=== PATIENT | female | born 1935 | race African-American/Black ===

== ENCOUNTER 2024-06-21 10:25 | Observation (INO) ==
--- NOTE | 2024-06-21 10:53 | Emergency Department Note ---
HPI - URI/Sore Throat General Chief Complaint: Upper Respiratory Infection Stated Complaint: RSV Source: patient and family Limitations: no limitations History of Present Illness HPI Narrative: 88 Y/O Female presents to the ED with c/o cough, fatigue, generally not feeling well since last Wednesday. Patient was seen in the ED on Wednesday, with a DX of RSV she was discharged to home. Today the patient was seen by her PCP for similar symptoms and was advised to go to the ER. MD elicited complaint: Reports fever and cough Consistency: Reports constant Severity: mild-moderate Description of mucous: Reports clear Able to tolerate fluids by mouth: Yes Exacerbating factors: Reports exertion Relieving factors: Reports nothing Associated symptoms: Reports fever and chills Related Data Previous Rx's Medication Instructions Recorded nystatin 100,000 unit/mL oral 500,000 unit (5 mL) PO QID thrush 06/18/24 suspension #200 mL Allergies Allergy/AdvReac Type Severity Reaction Status Date / Time No Known Drug Allergies Allergy Verified 06/21/24 10:59 Review of Systems Narrative 88 Y/O Female with PMHX of 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 Non smoker. Patient was recently DX with RSV on Wednesday, since cough has been getting worse. Status of ROS 10 or more systems reviewed and unremark able except as noted in history and below Constitutional Reports: fever and malaise; Denies: chills Eyes Denies: change in vision or blurry vision Cardiovascular Denies: chest pain, palpitations or edema Respiratory Reports: shortness of breath, cough and wheezing; Denies: stridor or pain on inspiration Gastrointestinal Denies: abdominal pain, nausea or vomiting Genitourinary Denies: painful urination Neurological Denies: headache, weakness in extremities, lack of coordination, dizziness or vertigo [facility] Medical History (Updated 06/21/24 @ 14:15 by Catina Fraser RN) 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 CAD (coronary artery disease) HTN (hypertension) Social History Smoking status: never smoker Exam Constitutional: normal general appearance, no apparent distress, no limitations and alert Vital Signs - 24 hr 06/21/24 10:35 06/21/24 11:22 06/21/24 11:30 Temperature 99.9 F H Pulse Rate 77 74 Respiratory Rate 18 16 Blood Pressure 128/66 129/52 Pulse Oximetry 100 100 97 Oxygen Delivery Me thod Room Air Room Air 06/21/24 12:32 06/21/24 12:38 Temperature Pulse Rate 72 Respiratory Rate 16 Blood Pressure 140/53 Pulse Oximetry 98 94 L Oxygen Delivery Me thod Room Air HENMT: normocephalic Eyes: PERRL and EOMs intact bilaterally Chest: inspection of chest normal and palpation of chest normal Respiratory: no wheezes, no retractions and no use of accessory muscles rhonchi, with rales Jose Angel lung bases Cardiovascular: normal heart rate noted, regular rhythm noted and peripheral pulses 2+ throughout Gastrointestinal: abdomen normal to inspection and abdomen soft to palpation Extremities: normal to inspection and no tenderness Neurology: gait normal, speech normal and coordination normal Course Course Hospital Course: Chest x-ray, without any acute process CT CHEST ordered COVID negative WBC normal BNP elevated > 150 I spoke with the patient and her daughter about the results and plans for admission, both agree to admission plans. Reevaluation(s) Reevaluation #1: Patient lungs, continue with rhonchi, and rales, despite breathing treatment. Time: 11:58 Vital Signs Vital signs: Vital Signs Temperature 99.9 F H 06/21/24 10:35 Pulse Rate 77 06/21/24 10:35 Respiratory Rate 18 06/21/24 10:35 Blood Pressure 128/66 06/21/24 10:35 Pulse Oximetry 100 06/21/24 10:35 Oxygen Delivery Method Room Air 06/21/24 10:35 Temperature 99.9 F H 06/21/24 10:35 Pulse Rate 74 06/21/24 14:40 Respiratory Rate 18 06/21/24 14:40 Blood Pressure 147/53 06/21/24 14:40 Pulse Oximetry 97 06/21/24 14:40 Oxygen Delivery Method Room Air 06/21/24 14:31 MDM - URI/Sore Throat MDM Narrative Medical Decision Making Narrative: Patient admitted for further work up and treatment considerations for CHF and RSV DX. Differential Diagnosis Upper Respiratory Differential Diagnosis: upper respiratory infection Medical Records MDM Medical Records Attestation: I reviewed the patient's medical records. Lab Data Attestation: I reviewed the patient's lab results. Labs: Lab Results 06/21/24 Range/Units 11:05 WBC 5.7 (4.3-9.3) K/uL RBC 3.6 L (4.00-5.50) M/uL Hgb 11.6 L (12.5-15.8) gm/dL Hct 33.8 L (35.9-46.7) % MCV 94.5 H (81.0-93.7) fl MCH 32.3 H (27.6-32.2) pg MCHC 34.2 (33.1-35.3) g/dl RDW 15.1 H (11.4-14.2) % Plt Count 156 (152-353) K/uL MPV 10.3 (6.9-10.8) fl Gran % 72.5 H (47.8-71.3) % Lymph % (Auto) 13.1 L (20.0-43.0) % [place] % (Auto) 13.2 H (3.6-9.8) % Eos % (Auto) 0.9 (0.4-2.8) % Baso % (Auto) 0.3 (0.1-0.85) Lymph # (Auto) 0.8 L (1.1-3.1) [place] # (Auto) 0.8 L (1.1-3.1) Eos # (Auto) 0.1 (0.0-0.2) Baso # (Auto) 0.0 (0.0-0.1) Absolute Gran (auto) 4.2 (2.3-6.0) Sodium 132 L (136-145) mmol/L Potassium 3.3 L (3.6-5.2) mmol/L Chloride 94.0 L (98-107) mmol/L Carbon Dioxide 30 (21-32) mmol/L Anion Gap 8.0 (4-14) mEq/L BUN 12 (7-18) mg/dL Creatinine 1.4 H (0.6-1.3) mg/dL Estimated GFR 36.6 (>59.9) Glucose 103 (70-110) mg/dL Calcium 9.0 (8.5-10.1) mg/dL Magnesium 1.7 L (1.8-2.4) mg/dL B-Natriuretic Peptide 291.0 H (0-100) pg/mL COVID-19 ([facility]) Not detected (Not Detectd) Imaging Data Attestation imaging: I have reviewed the pertinent imaging results. My Impression: EXAM: XR CHEST 1V HISTORY: WHEEZING X COUPLE DAYS; CV COMPARISON: June 18, 2024 FINDINGS: The trachea is midline. The cardiac silhouette is borderline in size with left- sided pacemaker in place. Right IJ Port-A-Cath is in place. The lungs are clear without focal infiltrate or effusion. The bony thorax is unremarkable. IMPRESSION: No acute cardiopulmonary disease. THIS IS AN ELECTRONICALLY VERIFIED FINAL REPORT 06/21/2024 11:39 AM - Electronically signed by Isabella Arriola MD EXAMINATION: CT CHEST W CON HISTORY: wheezing, rhonchi, raleswheezing, rhonchi, rales; CV. COMPARISON: CT chest 11/02/2021 TECHNIQUE: Routine axial imaging of the chest was performed. Postcontrast CT of the chest was performed. The above CT scan was done with automated exposure control and the mA and kV was adjusted to obtain quality images according to patient size. FINDINGS: Lungs: Respiratory motion. Scattered patchy areas of atelectasis. Bronchial thickening. No acute infiltrates, interstitial changes or ground-glass opacities. Calcified nodules in the lingula are unchanged. Central Airways: No obstructing endobronchial lesions Pleura: No pleural effusion or pneumothorax Thoracic Aorta: Tapers and enhances normally. Atherosclerotic calcification is present. Main Pulmonary Trunk: Normal diameter. No CT angiography evidence for acute pulmonary embolus Lymph Nodes: No pathologic hilar, axillary or mediastinal adenopathy. Heart/Pericardium: Normal heart size. No significant pericardial effusion. Liver: No acute findings. GB/Biliary: Distended gallbladder. No gallstones or dilated ducts Spleen: Normal size and density Pancreas: No acute findings as visualized Adrenal Glands: No mass Kidneys no hydronephrosis. Multiple renal cysts partially imaged. There is minimal to no change compared with previous. Abdominal Aorta: Tapers and enhances normally Retroperitoneum: No pathologically enlarged lymph nodes Bowel/Peritoneal Cavity: No acute findings as visualized Osseous Structures: Multilevel degenerative changes in the spine. No acute findings or bony lesions. Other: None IMPRESSION: No CT angiography evidence for acute pulmonary embolus or aortic dissection. Scattered patchy areas of atelectasis with bronchial thickening The above CT scan was done with automated exposure control and the mA and kV was adjusted to obtain quality images according to patient size THIS IS AN ELECTRONICALLY VERIFIED FINAL REPORT 06/21/2024 3:15 PM - Electronically signed by Joey Quesada MD Discharge Plan Discharge Patient Disposition: Admitted As Inpatient Condition: Stable Clinical Impression: Respiratory syncytial virus (RSV), Acute exacerbation of CHF (congestive heart failure) Interventions: ED Discharge Assessment Last Done: 06/21/24 14:40 ED Discharge Vital Sign Last Done: 06/21/24 14:40 Emergency Department Charge Sheet Last Done: 06/21/24 14:40 Time of Disposition: 12:40 Discharge Date/Time: 06/21/24 14:40
[2024-06-21] MEDS: METHYLPREDNISOLONE SOD SUCC/PF 125 MG/2 ML VIAL IVP ONE (11:19)
[2024-06-21] MEDS ORDERED: METHYLPREDNISOLONE SOD SUCC/PF 125 MG/2 ML VIAL ONE (11:19)
[2024-06-21] MEDS: IPRATROPIUM/ALBUTEROL SULFATE 3 ML AMPUL.NEB INH ONE ×3 (11:21→17:00)
[2024-06-21 11:28] LABS: Basophils%(Percent) Auto 0.3 (0.1-0.85); Eosinophils#(Absolute)Auto 0.1 (0.0-0.2); Eosinophils%(Percent) Auto 0.9 % (0.4-2.8); Granulocytes % - Auto 72.5 % (47.8-71.3); Granulocytes#(Absolute)- Auto 4.2 (2.3-6.0); Hematocrit 33.8 % (35.9-46.7); Mean Corpuscular Volume 94.5 fl (81.0-93.7); Monocytes #(Absolute)- Auto 0.8 (1.1-3.1); Monocytes %(Percent)- Auto 13.2 % (3.6-9.8); Platelet Count 156 K/uL (152-353); White Blood Count 5.7 K/uL (4.3-9.3)
[2024-06-21 11:38] LABS: Potassium 3.3 mmol/L (3.6-5.2)
[2024-06-21] MEDS: POTASSIUM CHLORIDE 20 MEQ TAB.ER.PRT PO ONE ×2 (11:52→16:59)
[2024-06-21] MEDS: MAGNESIUM SULFATE/D5W 2 GM/200 ML PIGGYBACK IV ONE (12:23)
[2024-06-21] MEDS: BUDESONIDE 0.5 MG/2 ML AMPUL.NEB INH ONE (12:37)
[2024-06-21] MEDS ORDERED: ACETAMINOPHEN 500 MG TABLET PO PRN (13:00)
[2024-06-21] MEDS ORDERED: bisacodyL 10 MG SUPP.RECT PR PRN (13:00)
[2024-06-21] MEDS ORDERED: MAGNESIUM, ALUMINUM HYDROXIDE 30 ML ORAL.SUSP PO PRN (13:00)
[2024-06-21] MEDS: IPRATROPIUM/ALBUTEROL SULFATE 3 ML AMPUL.NEB INH PRN (16:06)
[2024-06-22 05:46] LABS: Basophils%(Percent) Auto 0.2 (0.1-0.85); Granulocytes % - Auto 80.3 % (47.8-71.3); Granulocytes#(Absolute)- Auto 5.7 (2.3-6.0); Hematocrit 32.4 % (35.9-46.7); Monocytes #(Absolute)- Auto 0.8 (1.1-3.1); Monocytes %(Percent)- Auto 10.8 % (3.6-9.8); Platelet Count 159 K/uL (152-353); White Blood Count 7.1 K/uL (4.3-9.3)
[2024-06-22 06:11] LABS: Potassium 3.8 mmol/L (3.6-5.2)
--- NOTE | 2024-06-22 10:44 | History & Physical Report ---
H&P: HPI History of Present Illness Chief complaint: CHF EXCERBATION Narrative: 88 Y/O Female presents to the ED with c/o cough, fatigue, generally not feeling well since last Wednesday. Patient was seen in the ED on Wednesday, with a DX of RSV she was discharged to home. Today the patient was seen by her PCP for similar symptoms and was advised to go to the ER. Admitted patient to med/surg for observation and treatment. Review of Systems Status of ROS 10 or more systems reviewed and unremark able except as noted in history and below Constitutional Reports: fever and malaise; Denies: chills Eyes Denies: change in vision or blurry vision Ears, nose, mouth, and throat Denies: vertigo Cardiovascular Reports: shortness of breath with exertion; Denies: chest pain, palpitations or edema Respiratory Reports: shortness of breath, cough and wheezing; Denies: stridor or pain on inspiration Gastrointestinal Denies: abdominal pain, nausea or vomiting Genitourinary Denies: painful urination Neurological Denies: headache, weakness in extremities, lack of coordination, dizziness or vertigo Allergic/Immunologic Reports: wheezing PFSH PFSH Medical History (Updated 06/22/24 @ 10:39 by PREMA Sargent) 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 CAD (coronary artery disease) HTN (hypertension) Social History Smoking status: never smoker Problems where you live: no known problems Highest level of school completed/degree received: high school Meds Home Medications and Allergies Home Medications Medication Instructions Recorded Confirmed Type nystatin 100,000 unit/mL oral 500,000 unit (5 mL) PO QID thrush 06/18/24 Rx suspension #200 mL Allergies Allergy/AdvReac Type Severity Reaction Status Date / Time No Known Drug Allergies Allergy Verified 06/21/24 10:59 Exam Exam: Patient in ibarra's position with family at bedside upon entering room for exam. Constitutional: normal general appearance, no apparent distress, abnormal body habitus (obese), no limitations and alert Vital Signs - 24 hr 06/21/24 10:35 06/21/24 11:22 06/21/24 11:30 Temperature 99.9 F H Pulse Rate 77 74 Pulse Rate [Right Carotid] Respiratory Rate 18 16 Blood Pressure 128/66 129/52 Blood Pressure [Le ft Arm] Pulse Oximetry 100 100 97 Oxygen Delivery Me thod Room Air Room Air 06/21/24 12:32 06/21/24 12:38 06/21/24 13:30 Temperature Pulse Rate 72 76 Pulse Rate [Right Carotid] Respiratory Rate 16 18 Blood Pressure 140/53 159/50 Blood Pressure [Le ft Arm] Pulse Oximetry 98 94 L [facility] 06/21/24 14:31 06/21/24 14:40 06/21/24 15:00 Temperature Pulse Rate 74 74 Pulse Rate [Right Carotid] Respiratory Rate 18 18 Blood Pressure 147/53 147/53 Blood Pressure [Le ft Arm] Pulse Oximetry 97 97 97 [facility] 06/21/24 17:14 06/21/24 19:00 06/21/24 20:07 Temperature 97.4 F L 97.8 F Pulse Rate Pulse Rate [Right Carotid] 77 72 Respiratory Rate 19 18 Blood Pressure Blood Pressure [Le ft Arm] 160/62 141/56 Pulse Oximetry 97 95 95 Oxygen Delivery [facility] Room Air 06/22/24 00:00 06/22/24 00:14 06/22/24 06:31 Temperature 98.4 F 98.3 F Pulse Rate Pulse Rate [Right Carotid] 83 80 Respiratory Rate 17 17 Blood Pressure Blood Pressure [Le ft Arm] 148/62 162/64 Pulse Oximetry 97 97 97 Oxygen Delivery [facility] Room Air Room Air 06/22/24 08:23 Temperature 97.5 F L Pulse Rate Pulse Rate [Right Carotid] 72 Respiratory Rate 18 Blood Pressure Blood Pressure [Le ft Arm] 158/69 Pulse Oximetry 100 [facility] HENMT: normocephalic, head/scalp atraumatic, hearing grossly normal bilaterally, external ears normal and external nose normal Eyes: PERRL, EOMs intact bilaterally, conjunctivae normal, alignment normal, periorbital findings normal and visual acuity normal Neck/C-Spine: trachea midline Lymph: no lymphadenopathy noted and no lymphedema noted Chest: inspection of chest normal and palpation of chest normal Respiratory: breath sounds equal bilaterally, normal respiratory effort, wheezing noted (scattered wheezes), no retractions and no use of accessory muscles Cardiovascular: normal heart rate noted, regular rhythm noted and peripheral pulses 2+ throughout Gastrointestinal: abdomen normal to inspection and abdomen soft to palpation Genitourinary: bladder normal to palpation Back/Pelvis: spine normal to inspection Extremities: normal to inspection and no tenderness 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, no movement abnormality noted, gait abnormality noted (unable to access), speech normal and coordination normal Psychiatry: Mental Status Exam documented within this Exam's Psych section mental status grossly normal, oriented x3, thought process normal, cooperative, affect normal, psychomotor activity normal and memory normal Skin: skin color normal and skin turgor normal Assessment and Plan Assessment and Plan (1) CHF exacerbation: Qualifiers: Heart failure type: unspecified Qualified Code(s): I50.9 - Heart failure, unspecified Code(s): I50.9 - Heart failure, unspecified (2) RSV (respiratory syncytial virus infection): Qualifiers: RSV infection type: unspecified Qualified Code(s): B33.8 - Other specified viral diseases Code(s): B33.8 - Other specified viral diseases Plan Albuterol Sulfate 3 ml INH RQ4 Nystatin 500,000 unit PO BID - medication from home Acetaminophen 500 mg PO Q6H PRN Magnesium Hydroxide 30 ml PO Daily PRN Bisacodyl 10 mg [place] Daily PRN Continue to monitor labs and symptoms. Results Labs Labs: CBC WBC 7.1 K/uL (4.3-9.3) 06/22/24 05:20 RBC 3.5 M/uL (4.00-5.50) L 06/22/24 05:20 Hgb 11.2 gm/dL (12.5-15.8) L 06/22/24 05:20 Hct 32.4 % (35.9-46.7) L 06/22/24 05:20 MCV 94.0 fl (81.0-93.7) H 06/22/24 05:20 MCH 32.4 pg (27.6-32.2) H 06/22/24 05:20 MCHC 34.5 g/dl (33.1-35.3) 06/22/24 05:20 RDW 14.7 % (11.4-14.2) H 06/22/24 05:20 Plt Count 159 K/uL (152-353) 06/22/24 05:20 MPV 9.9 fl (6.9-10.8) 06/22/24 05:20 Gran % 80.3 % (47.8-71.3) H 06/22/24 05:20 Lymph % (Auto) 8.7 % (20.0-43.0) L 06/22/24 05:20 [place] % (Auto) 10.8 % (3.6-9.8) H 06/22/24 05:20 Eos % (Auto) 0.0 % (0.4-2.8) L 06/22/24 05:20 Baso % (Auto) 0.2 (0.1-0.85) 06/22/24 05:20 Lymph # (Auto) 0.6 (1.1-3.1) L 06/22/24 05:20 [place] # (Auto) 0.8 (1.1-3.1) L 06/22/24 05:20 Eos # (Auto) 0.0 (0.0-0.2) 06/22/24 05:20 Baso # (Auto) 0.0 (0.0-0.1) 06/22/24 05:20 Absolute Gran (auto) 5.7 (2.3-6.0) 06/22/24 05:20 BMP Sodium 135 mmol/L (136-145) L 06/22/24 05:20 Potassium 3.8 mmol/L (3.6-5.2) 06/22/24 05:20 Chloride 97.0 mmol/L (98-107) L 06/22/24 05:20 Carbon Dioxide 28 mmol/L (21-32) 06/22/24 05:20 Anion Gap 10.0 mEq/L (4-14) 06/22/24 05:20 BUN 18 mg/dL (7-18) 06/22/24 05:20 Creatinine 1.6 mg/dL (0.6-1.3) H 06/22/24 05:20 Estimated GFR 31.2 (>59.9) 06/22/24 05:20 Glucose 170 mg/dL (70-110) H 06/22/24 05:20 Calcium 9.6 mg/dL (8.5-10.1) 06/22/24 05:20 Phosphorus 3.7 mg/dL (2.5-4.9) 06/22/24 05:20 Magnesium 2.6 mg/dL (1.8-2.4) H 06/22/24 05:20 Total Bilirubin 0.32 mg/dL (0.0-1.0) 06/22/24 05:20 AST 23 U/L (15-37) 06/22/24 05:20 ALT 23 U/L (30-65) L 06/22/24 05:20 Alkaline Phosphatase 70 U/L (50-136) 06/22/24 05:20 Total Protein 6.8 g/dL (6.4-8.2) 06/22/24 05:20 Albumin 3.4 g/dL (3.4-5.0) 06/22/24 05:20 Liver Function Total Bilirubin 0.32 mg/dL (0.0-1.0) 06/22/24 05:20 AST 23 U/L (15-37) 06/22/24 05:20 ALT 23 U/L (30-65) L 06/22/24 05:20 Alkaline Phosphatase 70 U/L (50-136) 06/22/24 05:20 Total Protein 6.8 g/dL (6.4-8.2) 06/22/24 05:20 Albumin 3.4 g/dL (3.4-5.0) 06/22/24 05:20 Imaging Imaging ordered: Chest x-ray and CT scan - chest Radiologist's impression: XR CHEST 1V Date of Service: 06/21/24 HISTORY: WHEEZING X COUPLE DAYS; CV COMPARISON: June 18, 2024 FINDINGS: The trachea is midline. The cardiac silhouette is borderline in size with left- sided pacemaker in place. Right IJ Port-A-Cath is in place. The lungs are clear without focal infiltrate or effusion. The bony thorax is unremarkable. IMPRESSION: No acute cardiopulmonary disease. CT CHEST W CON Date of Service: 06/21/24 HISTORY: wheezing, rhonchi, raleswheezing, rhonchi, rales; CV. COMPARISON: CT chest 11/02/2021 TECHNIQUE: Routine axial imaging of the chest was performed. Postcontrast CT of the chest was performed. The above CT scan was done with automated exposure control and the mA and kV was adjusted to obtain quality images according to patient size. FINDINGS: Lungs: Respiratory motion. Scattered patchy areas of atelectasis. Bronchial thickening. No acute infiltrates, interstitial changes or ground-glass opacities. Calcified nodules in the lingula are unchanged. Central Airways: No obstructing endobronchial lesions Pleura: No pleural effusion or pneumothorax Thoracic Aorta: Tapers and enhances normally. Atherosclerotic calcification is present. Main Pulmonary Trunk: Normal diameter. No CT angiography evidence for acute pulmonary embolus Lymph Nodes: No pathologic hilar, axillary or mediastinal adenopathy. Heart/Pericardium: Normal heart size. No significant pericardial effusion. Liver: No acute findings. GB/Biliary: Distended gallbladder. No gallstones or dilated ducts Spleen: Normal size and density Pancreas: No acute findings as visualized Adrenal Glands: No mass Kidneys no hydronephrosis. Multiple renal cysts partially imaged. There is minimal to no change compared with previous. Abdominal Aorta: Tapers and enhances normally Retroperitoneum: No pathologically enlarged lymph nodes Bowel/Peritoneal Cavity: No acute findings as visualized Osseous Structures: Multilevel degenerative changes in the spine. No acute findings or bony lesions. Other: None IMPRESSION: No CT angiography evidence for acute pulmonary embolus or aortic dissection. Scattered patchy areas of atelectasis with bronchial thickening The above CT scan was done with automated exposure control and the mA and kV was adjusted to obtain quality images according to patient size
[2024-06-22] MEDS: IPRATROPIUM/ALBUTEROL SULFATE 3 ML AMPUL.NEB INH SCH (11:21)
[2024-06-22] MEDS: NYSTATIN 100000 UNIT/ML PO SCH (12:21)
[2024-06-23 04:52] LABS: Basophils%(Percent) Auto 0.3 (0.1-0.85); Eosinophils#(Absolute)Auto 0.1 (0.0-0.2); Granulocytes % - Auto 69.5 % (47.8-71.3); Granulocytes#(Absolute)- Auto 3.5 (2.3-6.0); Hematocrit 29.4 % (35.9-46.7); Mean Corpuscular Volume 93.5 fl (81.0-93.7); Monocytes #(Absolute)- Auto 0.7 (1.1-3.1); Monocytes %(Percent)- Auto 13.7 % (3.6-9.8); Platelet Count 168 K/uL (152-353); White Blood Count 5.1 K/uL (4.3-9.3)
[2024-06-23 06:03] LABS: Potassium 3.3 mmol/L (3.6-5.2)
[2024-06-23] MEDS: IPRATROPIUM/ALBUTEROL SULFATE 3 ML AMPUL.NEB INH ONE (08:17)
[2024-06-23] MEDS ORDERED: MECLIZINE HCL 25 MG TABLET PO PRN (09:22)
[2024-06-23] MEDS: POTASSIUM CHLORIDE 20 MEQ TAB.ER.PRT PO ONE (09:35)
[2024-06-23] MEDS: LORATADINE 10 MG TABLET PO SCH (09:37)
[2024-06-23] MEDS: LOSARTAN POTASSIUM 50 MG TABLET PO SCH (09:58)
[2024-06-23] MEDS ORDERED: LINACLOTIDE 72 MCG PO SCH (10:00)
[2024-06-23] MEDS: TIMOLOL MALEATE 0.5% OPTH SCH (10:19)
[2024-06-23] MEDS: EZETIMIBE SIMVASTATIN PO SCH (10:19)
[2024-06-23] MEDS: EZETIMIBE 10 MG TABLET PO SCH (10:50)
[2024-06-23] MEDS: [UNRECOGNIZED DRUG - OTHER] PO SCH (11:47)
[2024-06-23] MEDS: MULTIVIT MIN FA LYCOPEN LUTEIN PO SCH (11:47)
[2024-06-23] MEDS: ENTECAVIR 0.5 MG PO SCH (11:47)
[2024-06-23] MEDS: SIMVASTATIN 40 MG TABLET PO SCH (11:48)
[2024-06-23] MEDS: METHYLPREDNISOLONE SOD SUCC/PF 40 MG/ML VIAL INJ SCH (13:01)
[2024-06-23] MEDS: cloNIDine HCL 0.1 MG TABLET PO ONE (19:34)
[2024-06-23] MEDS: ACYCLOVIR 200 MG CAPSULE PO SCH (20:50)
[2024-06-23] MEDS: BENZONATATE 100 MG CAPSULE PO ONE (21:46)
[2024-06-24] MEDS ORDERED: METHYLPREDNISOLONE SOD SUCC/PF 40 MG/ML VIAL ONE (01:31)
[2024-06-24 04:25] LABS: Basophils%(Percent) Auto 0.3 (0.1-0.85); Granulocytes % - Auto 84.1 % (47.8-71.3); Hematocrit 32.5 % (35.9-46.7); Monocytes #(Absolute)- Auto 0.2 (1.1-3.1); Monocytes %(Percent)- Auto 4.5 % (3.6-9.8); Platelet Count 208 K/uL (152-353); White Blood Count 4.7 K/uL (4.3-9.3)
[2024-06-24] MEDS: ENTECAVIR 0.5 MG PO SCH (08:02)
[2024-06-24] MEDS: MULTIVIT MIN FA LYCOPEN LUTEIN PO SCH (08:03)
[2024-06-24] MEDS: [UNRECOGNIZED DRUG - OTHER] PO SCH (08:03)
[2024-06-24] MEDS: TIMOLOL MALEATE 0.5% EYE DROP OPTH SCH (08:04)
[2024-06-24] MEDS ORDERED: LINACLOTIDE 72 MCG PO SCH (09:00)
[2024-06-24] MEDS: CLONIDINE 0.1 MG/24 HR TOPICAL SCH (10:52)
--- NOTE | 2024-06-24 11:35 | Internal Medicine Prog Note ---
Progress Note: A&P Assessment and Plan (1) CHF exacerbation: Assessment and Plan: resolved. doing well. Qualifiers: Heart failure type: unspecified Qualified Code(s): I50.9 - Heart failure, unspecified (2) RSV (respiratory syncytial virus infection): Assessment and Plan: no changes. Qualifiers: RSV infection type: unspecified Qualified Code(s): B33.8 - Other specified viral diseases (3) GERD without esophagitis: Assessment and Plan: add Pepcid. Plan Albuterol Sulfate 3 ml INH RQ4 Nystatin 500,000 unit PO BID - medication from home Acetaminophen 500 mg PO Q6H PRN Magnesium Hydroxide 30 ml PO Daily PRN Bisacodyl 10 mg ND Daily PRN Continue to monitor labs and symptoms. Fall Risk Details Hubbard Fall Scale Risk Level: Moderate Fall Risk Current Medications: Current Medications Acetaminophen (Acetaminophen 500 Mg Tablet) 500 mg PO Q6H PRN PRN Reason: Fever OF 100.5 OR GREATER Acyclovir (Acyclovir 200 Mg Capsule) 400 mg PO BID [facility] Last Admin: 06/24/24 08:03 Dose: 400 mg Albuterol Sulfate (Ipratropium/Albuterol Sulfate 3 Ml Ampul.Neb) 3 ml INH RQ4 [facility] Last Admin: 06/24/24 09:22 Dose: Not Given Bisacodyl (Bisacodyl 10 Mg Supp.Rect) 10 mg ND DAILY PRN PRN Reason: Constipation Clonidine HCl (Clonidine 0.1mg/24 Hr.Tdwk) 1 each TOPICAL Q7D [facility] Last Admin: 06/24/24 10:52 Dose: 1 each Ezetimibe (Ezetimibe 10 Mg Tablet) 10 mg PO DAILY [facility] Last Admin: 06/24/24 08:03 Dose: 10 mg Loratadine (Loratadine 10 Mg Tablet) 10 mg PO DAILY [facility] Last Admin: 06/24/24 08:04 Dose: 10 mg Losartan Potassium (Losartan Potassium 50 Mg Tablet) 100 mg PO DAILY [facility] Magnesium Hydroxide (Magnesium, Aluminum Hydroxide 30 Ml Oral.Susp) 30 ml PO DAILY PRN PRN Reason: Constipation Meclizine HCl (Meclizine Hcl 25 Mg Tablet) 25 mg PO BID PRN PRN Reason: dizziness Methylprednisolone Sodium Succinate (Methylprednisolone Sod Succ/Pf 40 Mg/Ml Vial) 80 mg INJ Q12H [facility] Last Admin: 06/24/24 01:27 Dose: 80 mg Non-Formulary Medication (Entecavir) 0.5 mg PO DAILY [facility] Last Admin: 06/24/24 08:02 Dose: 0.5 mg Non-Formulary Medication (Linaclotide [Linzess]) 72 mcg PO QAM [facility] Non-Formulary Medication (Liirakup-Quv-Cs-Lycopen-Lutein [Centrum Silver]) 1 tab PO DAILY [facility] Last Admin: 06/24/24 08:03 Dose: 1 tab Nystatin (Nystatin 100,000 Unit/Ml Oral.Susp) 500,000 unit PO BID [facility] Last Admin: 06/24/24 08:04 Dose: 500,000 unit Simvastatin (Simvastatin 40 Mg Tablet) 40 mg PO DAILY [facility] Last Admin: 06/24/24 08:05 Dose: Not Given Timolol Maleate (Timolol Maleate 0.5% Eye Drop) 0 ml OPTH DAILY [facility] Last Admin: 06/24/24 08:04 Dose: 1 ml Time Spent With Patient Time: Total time spent is greater than 50% in coordination of care (as documented) at patient's floor/unit and/or counseling patient: Internal Medicine - PN: Subj Subjective Interval history: No overnight events. Still mildly dyspneic. Slept well overnight. Has some epigastric pain since eating breakfast the feels like prior heartburn episodes. Exam Constitutional: normal general appearance, no apparent distress and alert Vital Signs - 24 hr 06/23/24 11:51 06/23/24 11:53 06/23/24 15:45 Temperature 98.2 F 98.4 F Pulse Rate [Right Carotid] 67 66 Respiratory Rate 19 18 Blood Pressure Blood Pressure [Le ft Arm] 154/69 161/62 Pulse Oximetry 97 96 98 Oxygen Delivery Me thod Room Air Room Air 06/23/24 15:58 06/23/24 19:21 06/23/24 19:29 Temperature 97.9 F Pulse Rate [Right Carotid] 64 Respiratory Rate 19 Blood Pressure Blood Pressure [Le ft Arm] 202/84 Pulse Oximetry 94 L 97 98 Oxygen Delivery Me thod Room Air 06/23/24 19:34 06/23/24 23:23 06/23/24 23:39 Temperature 98.1 F Pulse Rate [Right Carotid] 60 Respiratory Rate 17 Blood Pressure 202/85 Blood Pressure [Le ft Arm] 174/76 Pulse Oximetry 97 100 Oxygen Delivery Me thod Room Air 06/24/24 03:37 06/24/24 04:33 06/24/24 07:39 Temperature 98.0 F 98 F Pulse Rate [Right Carotid] 60 62 Respiratory Rate 18 18 Blood Pressure Blood Pressure [Le ft Arm] 167/74 160/65 Pulse Oximetry 96 97 95 Oxygen Delivery Me thod Room Air Room Air 06/24/24 08:04 06/24/24 08:28 Temperature Pulse Rate [Right Carotid] Respiratory Rate Blood Pressure 160/65 Blood Pressure [Le ft Arm] Pulse Oximetry 99 Oxygen Delivery Me thod HENMT: normocephalic, head/scalp atraumatic, hearing grossly normal bilaterally and external ears normal Eyes: PERRL and EOMs intact bilaterally Neck/C-Spine: visual inspection normal and trachea midline Respiratory: breath sounds equal bilaterally, normal respiratory effort, clear to auscultation bilaterally and no wheezes Cardiovascular: normal heart rate noted, regular rhythm noted and no murmur Gastrointestinal: abdomen soft to palpation, nontender to palpation, nondistended and normoactive bowel sounds Extremities: full ROM Neurology: heat regulator II-XII intact Psychiatry: mental status grossly normal, oriented x3, thought process normal, cooperative and affect normal Internal Medicine - PN: Obj Da Labs Labs: Laboratory Results - last 24 hr 06/24/24 04:15 WBC 4.7 RBC 3.4 L Hgb 11.0 L Hct 32.5 L MCV 95.0 H MCH 32.3 H MCHC 34.0 RDW 15.5 H Plt Count 208 MPV 10.1 Gran % 84.1 H Lymph % (Auto) 11.1 L Sargent % (Auto) 4.5 Eos % (Auto) 0.0 L Baso % (Auto) 0.3 Lymph # (Auto) 0.5 L Sargent # (Auto) 0.2 L Eos # (Auto) 0.0 Baso # (Auto) 0.0 Absolute Gran (auto) 4.0 Sodium 136 Potassium 5.0 Chloride 101.0 Carbon Dioxide 29 Anion Gap 6.0 BUN 23 H Creatinine 1.3 Estimated GFR 40.1 Glucose 156 H Calcium 9.0 Phosphorus 3.3 Magnesium 2.3 Total Bilirubin 0.26 AST 21 ALT 24 L Alkaline Phosphatase 71 Total Protein 6.3 L Albumin 3.1 L Review of Systems 88 Y/O Female with PMHX of 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 Non smoker. Patient was recently DX with RSV on Wednesday, since cough has been getting worse. Status of ROS: 10 or more systems reviewed and unremarkable except as noted in history and below Constitutional: Reports: fever and malaise; Denies: chills Eyes: Denies: change in vision or blurry vision Ears, nose, mouth, and throat: Denies: vertigo Cardiovascular: Reports: shortness of breath with exertion; Denies: chest pain, palpitations or edema Respiratory: Reports: shortness of breath, cough and wheezing; Denies: stridor or pain on inspiration Gastrointestinal: Reports: heartburn; Denies: nausea or vomiting Genitourinary: Denies: painful urination Neurological: Denies: headache, weakness in extremities, lack of coordination, dizziness or vertigo Allergic/Immunologic: Reports: wheezing
[2024-06-24] MEDS: FAMOTIDINE 20 MG TABLET PO SCH (21:12)
[2024-06-24] MEDS: METOPROLOL TARTRATE 25 MG TABLET PO SCH (23:57)
[2024-06-25] MEDS: HYDRALAZINE HCL 20 MG/ML VIAL IVP ONE (03:53)
[2024-06-25 07:30] VITALS: RESP 18
[2024-06-25] MEDS: LOSARTAN POTASSIUM 50 MG TABLET PO SCH (08:13)
[2024-06-25 11:31] VITALS: BP 168/90; PULSE 61; TEMP 98
--- NOTE | 2024-06-25 14:13 | Discharge Summary ---
DS: Providers Provider Date of admission: 06/21/24 13:26 Primary care physician: Seamus Yee MD Admitting clinician: Jessica Starks Attending physician on discharge: Eduardo Vazquez Anticipated date of discharge: 06/25/24 DS: Diagnosis Discharge Diagnosis (1) CHF exacerbation: Assessment and plan: resolved. Qualifiers: Heart failure type: unspecified Qualified Code(s): I50.9 - Heart failure, unspecified (2) RSV (respiratory syncytial virus infection): Assessment and plan: improved. Qualifiers: RSV infection type: unspecified Qualified Code(s): B33.8 - Other specified viral diseases (3) GERD without esophagitis: Assessment and plan: stable. (4) Essential (primary) hypertension: Assessment and plan: Losartan 100mg with prn clonidine. Close PCP f/u. Plan Discharge home with changed BP meds. DS: Summary Hospital Course Hospital Course: Pt admitted for RSV with weakness, malaise, and CHF exacerbation. Responded well to supportive care and quickly improved. BP remained elevated with addition of clonidine patch and increased losartan. Being discharged on the increased losartan with prn clonidine. Status at Discharge Functional status at discharge: independent ambulation Overall status at discharge: patient is back to baseline Time Spent with Patient Time attestation: Total time spent providing and/or coordinating discharge services: Time spent: less than 30 minutes Exam Constitutional: normal general appearance, no apparent distress, no limit ations and alert Vital Signs - 24 hr 06/24/24 15:49 06/24/24 16:00 06/24/24 19:18 Temperature 97.8 F 98.4 F Pulse Rate Pulse Rate [Right Carotid] 86 72 Respiratory Rate 18 21 Blood Pressure Blood Pressure [Le ft Arm] 168/69 147/58 Pulse Oximetry 97 99 98 Oxygen Delivery Me thod Room Air Room Air 06/24/24 20:22 06/24/24 23:20 06/24/24 23:57 Temperature 98.0 F Pulse Rate 66 Pulse Rate [Right Carotid] 66 Respiratory Rate 22 Blood Pressure 178/72 Blood Pressure [Le ft Arm] 178/72 Pulse Oximetry 97 97 Oxygen Delivery Me thod Room Air 06/25/24 03:13 06/25/24 03:48 06/25/24 03:53 Temperature 97.8 F Pulse Rate Pulse Rate [Right Carotid] 61 Respiratory Rate 20 Blood Pressure 196/82 Blood Pressure [Le ft Arm] 194/73 Pulse Oximetry 99 97 Oxygen Delivery Me thod Room Air 06/25/24 06:07 06/25/24 06:11 06/25/24 07:16 Temperature Pulse Rate Pulse Rate [Right Carotid] Respiratory Rate Blood Pressure 164/76 Blood Pressure [Le ft Arm] 164/76 Pulse Oximetry 96 Oxygen Delivery Me thod 06/25/24 07:29 06/25/24 08:13 06/25/24 11:22 Temperature 97.9 F Pulse Rate Pulse Rate [Right Carotid] 63 Respiratory Rate 18 Blood Pressure 173/73 Blood Pressure [Le ft Arm] 173/73 Pulse Oximetry 98 96 Oxygen Delivery Me thod Room Air 06/25/24 11:31 Temperature 98.0 F Pulse Rate Pulse Rate [Right Carotid] 61 Respiratory Rate 18 Blood Pressure Blood Pressure [Le ft Arm] 168/90 Pulse Oximetry 99 Oxygen Delivery Me thod Room Air HENMT: normocephalic, head/scalp atraumatic, hearing grossly normal bilaterally and external ears normal Eyes: PERRL, EOMs intact bilaterally and conjunctivae normal Neck/C-Spine: visual inspection normal and trachea midline Respiratory: breath sounds equal bilaterally, normal respiratory effort, clear to auscultation bilaterally and no wheezes Cardiovascular: normal heart rate noted, regular rhythm noted and no murmur Gastrointestinal: abdomen soft to palpation, nontender to palpation, nondistended and normoactive bowel sounds Back/Pelvis: thoracic spine ROM normal and lumbar spine ROM normal Extremities: normal to inspection, normal to palpation and full ROM Neurology: munitions worker II-XII intact, no movement abnormality noted and no focal motor deficit noted Psychiatry: mental status grossly normal, oriented x3, thought process normal, cooperative and affect normal Discharge Plan Discharge Disposition: Home, Self-Care Condition: Stable Discharge Medications: New losartan 50 mg Tablet 100 mg PO DAILY 10 Days Qty: 20 0RF clonidine HCl 0.1 mg Tablet 0.1 mg PO BID PRN (Reason: hypertensive emergency) 10 Days Qty: 20 0RF Rx Instructions: For SBP>160 or DBP>100 Continued nystatin 100,000 unit/mL suspension 500,000 unit PO QID Qty: 200 0RF Rx Instructions: Use for 48 hours after you no longer see any white film in your mouth. acyclovir 400 mg tablet 400 mg PO BID loratadine [Claritin] 10 mg tablet 10 mg PO DAILY Centrum Silver 0.4 mg-300 mcg- 250 mcg tablet 1 tab PO DAILY meclizine [Dramamine (meclizine)] 25 mg tablet 25 mg PO BID PRN (Reason: dizziness) timolol maleate 0.5 % drops 1 drp ophthalmic (eye) DAILY Rx Instructions: BOTH EYES ezetimibe-simvastatin 10-40 mg tablet 1 tab PO DAILY Linzess 72 mcg capsule 72 mcg PO QAM entecavir 0.5 mg tablet 0.5 mg PO DAILY Discontinued losartan 25 mg tablet 25 mg PO DAILY Patient Comments: TAKE 1 TABLET BY MOUTH EVERY DAY FOR 90 DAYS Discharge Orders: Discharge Order (Routine); Ordered 06/25/24 Ordered By: Eduardo Vazquez Interventions: MED/SURG & ICU Observation Charge Sheet Last Done: 06/25/24 06:07 Forms: Portal/Health Info Access Inst Follow-Ups: Seamus Yee MD [Primary Care Provider] - 06/29/24 11:00 am
== END 2024-06-25 15:07 | disposition home or self-care (01) ==
LOC: MS 10:25 → ED 10:25 → MS 14:40
PROVIDERS: ADMIT Family Medicine; ATTEND Family Medicine
DX: R06.2 Wheezing; R05.9 Cough, unspecified; I50.9 Heart failure, unspecified; I11.0 Hypertensive heart disease with heart failure; K21.9 Gastro-esophageal reflux disease without esophagitis; R53.1 Weakness; B33.8 Other specified viral diseases